=== PATIENT | female | born 1990 | race Caucasian/White ===

== ENCOUNTER → 2016-10-17 | Outpatient (CLI) | payer OTHER ==
--- NOTE | 2016-10-17 14:09 | MRI ---
HISTORY: Low back pain with radiculopathy. Study: MRI lumbar spine without contrast Comparison: None available. Technique: Multiplanar multi-sequence MRI of the lumbar spine was obtained. Sagittal T1, sagittal T 2, and stir weighted images, axial T1, and axial T2 images were obtained. Findings: Anatomic alignment without fracture or listhesis. Disc desiccation at L5-S1 with associated mild dis c height loss. The visualized bone marrow has normal signal characteristics. The conus medullaris te rminates at L1. The visualized spinal cord demonstrates normal signal characteristics. The visualize d soft tissues are unremarkable. L1 -- L2: No significant disc bulge, neural foraminal narrowing, or spinal canal stenosis. L2 -- L3: No significant disc bulge, neural foraminal narrowing, or spinal canal stenosis. L3 -- L4: Broad-based disc bulge without significant neural foraminal narrowing or spinal canal sten osis. L4 -- L5: Broad-based disc bulge without significant neural foraminal narrowing or spinal canal sten osis. L5 -- S1: Broad-based disc bulge that extends into the lateral recesses causing mild/moderate right and mild left neural foraminal narrowing. No significant spinal canal stenosis. IMPRESSION: Broad-based disc bulge at L5-S1 causing mild to moderate neural foraminal narrowing. No significant spinal canal stenosis. Reported By:
== END | disposition home or self-care (01) ==
LOC: RAD 13:03
PROVIDERS: ATTEND Nurse Practitioner Family
DX: M54.16 Radiculopathy, lumbar region (principal); M51.27 Other intervertebral disc displacement, lumbosacral region
CPT/HCPCS: 72148

== ENCOUNTER 2019-01-01 06:54 | Inpatient (IN) ==
[2019-01-01 07:29] VITALS: BMI 41.6
[2019-01-01] MEDS ORDERED: NUBAIN INJ 200 MG VIAL MULTIDOSE IVP PRN (07:36)
[2019-01-01] MEDS ORDERED: PITOCIN IVP ONE (07:36)
[2019-01-01] MEDS ORDERED: PITOCIN ONE (07:37)
[2019-01-01] MEDS ORDERED: D5 1/2 NS 1000 ML 1,000 ML IV ONE (07:37)
[2019-01-01] MEDS ORDERED: D5 1/2 NS 1L W PITOCIN 20 UNITS/L 20 UNITS/1,000 ML BAG IV ONE (07:37)
[2019-01-01] MEDS ORDERED: ANCEF VIAL 1 GRAM ONE (07:38)
[2019-01-01] MEDS ORDERED: NS 100 ML IV 100 ML IV ONE (07:38)
[2019-01-01] MEDS ORDERED: FENTANYL INJ 100 mcg ONE (07:53)
[2019-01-01] MEDS ORDERED: NAROPIN EPIDURAL 0.2% + FENTANYL 90MCG 0 ML EPI ONE (07:53)
[2019-01-01] MEDS ORDERED: LR 1000 ML IV 1,000 ML IV ONE (07:55)
[2019-01-01] MEDS ORDERED: ANCEF VIAL 1 GRAM IVP SCH (08:00)
[2019-01-01] MEDS ORDERED: AMPICILLIN VIAL 2 GRAM 2 G in NS 100 ML IV + SPIKE MINIBAG* 100 ML IV SCH (08:00)
[2019-01-01] MEDS ORDERED: D5 1/2 NS 1000 ML 1,000 ML IV SCH (08:00)
[2019-01-01] MEDS ORDERED: MARCAINE 0.25% WITH EPI IJ ONE (08:00)
[2019-01-01 08:02] LABS: BASOPHILS # (AUTO) 0.1 X10^3/uL (0.0-0.1); BASOPHILS % (AUTO) 0.4 % (0.2-1.0); EOSINOPHILS % (AUTO) 0.2 % (0.9-2.9); HEMATOCRIT 31.7 % (36.0-47.0); HEMOGLOBIN 11.3 g/dL (12.0-16.0); LYMPHOCYTES # (AUTO) 1.9 X10^3/uL (1.3-2.9); LYMPHOCYTES % (AUTO) 9.9 % (21.0-51.0); MEAN CORPUSCULAR HEMOGLOBIN 32.6 pg (27.0-34.0); MEAN CORPUSCULAR HGB CONC 35.5 g/dL (33.0-35.0); MEAN CORPUSCULAR VOLUME 91.8 fL (80.0-100.0); MEAN PLATELET VOLUME 8.3 fL (7.4-11.0); MONOCYTES # (AUTO) 0.7 x10^3/uL (0.3-0.8); MONOCYTES % (AUTO) 3.6 % (0.0-13.0); NEUTROPHILS # (AUTO) 16.7 x10^3/uL (2.2-4.8); NEUTROPHILS % (AUTO) 85.9 % (42.0-75.0); PLATELET COUNT 334 X10^3/uL (150.0-450.0); RED BLOOD COUNT 3.45 X10^6/uL (3.5-5.4); RED CELL DISTRIBUTION WIDTH 12.6 % (11.6-16.5); WHITE BLOOD COUNT 19.4 X10^3/uL (3.6-10.0)
[2019-01-01 08:07] LABS: BILIRUBIN,URINE NEGATIVE (NEGATIVE); BLOOD/HEMOGLOBIN,URINE 5+ (NEGATIVE); GLUCOSE, URINE NEGATIVE (NEGATIVE); KETONES,URINE NEGATIVE (NEGATIVE); LEUKOCYTE ESTERASE ,URINE 2+ (NEGATIVE); NITRITES,URINE NEGATIVE (NEGATIVE); PH,URINE 6.5 (5.0 - 8.0); PROTEIN,URINE 2+ (NEGATIVE); UROBILINOGEN,URINE NORMAL (NORMAL)
[2019-01-01 08:08] LABS: ALANINE AMINOTRANSFERASE 11 Units/L (12-78); ASPARTATE AMINO TRANSFERASE 14 Units/L (15-37); BLOOD UREA NITROGEN 4 mg/dL (7-18); CALCIUM 8.7 mg/dL (8.5-10.1); CARBON DIOXIDE 20.3 mmol/L (21-32); CHLORIDE 103 mmol/L (98-107); COR NA(FOR HYPERGLY) 137 mmol/L (136-145); SODIUM 137 mmol/L (136-145); eGFR NON BLACK RACES > 60 (>60)
[2019-01-01] MEDS ORDERED: XYLOCAINE-MPF 1% ONE (08:08)
[2019-01-01] MEDS ORDERED: XYLOCAINE 1 % (PLAIN) ONE (08:08)
[2019-01-01 08:09] LABS: APPEARANCE,URINE SLIGHTLY HAZY (CLEAR); COLOR,URINE YELLOW (YELLOW)
[2019-01-01 08:13] LABS: AMORPHOUS SEDIMENT,UR TRACE /HPF (NEGATIVE); BACTERIA,URINE TRACE /HPF (NEGATIVE); SQUAMOUS EPITHELIAL CELL,UR MANY /HPF (NEGATIVE)
[2019-01-01] MEDS ORDERED: D5LR 1L W PITOCIN 10 UNITS/L 10 UNITS/1,000 ML BAG IV ONE (08:29)
[2019-01-01] MEDS ORDERED: PHENERGAN INJ 25 MG IM PRN (09:34)
[2019-01-01] MEDS ORDERED: MOTRIN TAB 800 MG PO PRN (09:34)
--- NOTE | 2019-01-01 09:34 | DR.OB ---
OB Quick Note - Assessment/Plan Assessment/Plan: Delivery Note [employer] 01/01/19 at 9:14am Patient complete and pushing. Head delivered over intact perineum. Nuchal cord x 1 not able to be reduced. Nose and mouth bulb suctioned. Cord clamped x 2 and cut. handed to attendant. Cord sent for gases. Placenta delivered spontaneously / intact / 3 vessel cord. A clot noted on placenta (20%) concerning for abruption. No CVX tears. A small midline second degree tear noted and repaired with 0-vicryl in usual fashion. Viable male infant, VTX/OA, wt=4'6" and 6/8, stable to nursery. Mother stable to RR. YOC=[id number].
[2019-01-01] MEDS ORDERED: MILK OF MAGNESIA PO PRN (10:24)
[2019-01-01] MEDS ORDERED: DERMOPLAST SPRAY TOP PRN (10:24)
[2019-01-01] MEDS ORDERED: AMBIEN PO PRN (10:24)
[2019-01-01] MEDS ORDERED: ADACEL or BOOSTRIX TDaP VACCINE IM ONE (10:24)
[2019-01-01] MEDS: D5 1/2 NS 1000 ML 1,000 ML with PITOCIN 20 UNITS IV SCH ×4 (11:28→23:18)
[2019-01-01] MEDS ORDERED: AMPICILLIN VIAL 1 GRAM 1 G in NS 50 ML IV + SPIKE MINIBAG* 50 ML IV SCH (11:38)
[2019-01-01] MEDS: NORMODYNE TAB 100 MG PO SCH (22:14)
[2019-01-01] MEDS: ZANTAC PO SCH (22:14)
[2019-01-02] MEDS: D5 1/2 NS 1000 ML 1,000 ML with PITOCIN 20 UNITS IV SCH ×2 (02:08)
[2019-01-02 05:31] LABS: HEMOGLOBIN 10.1 g/dL (12.0-16.0)
[2019-01-02] MEDS ORDERED: PRENATAL PLUS PO SCH (09:00)
[2019-01-02] MEDS: ZANTAC PO SCH (09:31)
[2019-01-02] MEDS: NORMODYNE TAB 100 MG PO SCH (09:31)
[2019-01-02 12:10] VITALS: BP 163/91
== END 2019-01-02 09:50 | disposition home or self-care (01) | DRG 806 ==
LOC: ER 06:56 → LD 07:35 → MED/SURG 11:00
PROVIDERS: ADMIT Specialist; ATTEND Specialist
DX: Z37.0 Single live birth; O10.013 Pre-existing essential hypertension complicating pregnancy, third trimester; Z87.410 Personal history of cervical dysplasia; Z98.890 Other specified postprocedural states; O70.1 Second degree perineal laceration during delivery; Z3A.33 33 weeks gestation of pregnancy; O60.13X0 Preterm labor second trimester with preterm delivery third trimester, not applicable or unspecified
CPT/HCPCS: 36415; 59409; 80048; 81001; 84450; 84460; 85014; 85018; 85025; 86592; 86850; 86900; 86901; 96365; 99284; A4216; A4222; S0020; S0197; J0290; J0690; J2590; J3010; J7050; J7120; S5010

== ENCOUNTER 2023-06-25 06:22 | Observation (INO) ==
[2023-06-25] MEDS: NOZIN NASAL SANITIZER TP ONE (06:47)
[2023-06-25] MEDS: D5 1/2 NS 1,000 ML 1,000 ML IV SCH ×2 (06:55→10:01)
[2023-06-25] MEDS: DECADRON INJ ONE (07:25)
[2023-06-25] MEDS: BETADINE SOLN ONE (07:25)
[2023-06-25] MEDS: ANCEF VIAL 1 GRAM IVP ONE (07:25)
[2023-06-25] MEDS: ROBINUL ONE (07:25)
[2023-06-25] MEDS: DILAUDID INJ ONE (07:25)
[2023-06-25] MEDS: VERSED ONE (07:25)
[2023-06-25] MEDS: MARCAINE SPINAL ONE (07:25)
[2023-06-25] MEDS: ZEMURON 100 MG VIAL ONE (07:25)
[2023-06-25] MEDS: PRECEDEX INJ VIAL ONE (07:25)
[2023-06-25] MEDS: ZOFRAN INJ 4 MG VIAL ONE (07:25)
[2023-06-25] MEDS: DIPRIVAN VIAL 20 ML ONE (07:25)
[2023-06-25] MEDS: VASOSTRICT INJ 20 UNITS VIAL ONE (07:56)
[2023-06-25] MEDS: MAGNESIUM SULFATE 50% INJ VIAL ONE (07:57)
[2023-06-25] MEDS: BRIDION ONE (09:03)
[2023-06-25] MEDS: D5 1/2 NS 1,000 ML 1,000 ML IV ONE (09:15)
[2023-06-25] MEDS ORDERED: DILAUDID INJ IVP PRN (09:18)
[2023-06-25] MEDS ORDERED: BARHEMSYS INJ IVP PRN (09:18)
[2023-06-25] MEDS ORDERED: BENADRYL INJ 50 MG VIAL IVP PRN (09:18)
[2023-06-25] MEDS ORDERED: ZOFRAN INJ 4 MG VIAL IVP PRN (09:18)
[2023-06-25] MEDS ORDERED: REGLAN INJ 10 MG VIAL IVP PRN (09:18)
[2023-06-25] MEDS ORDERED: TORADOL 30 MG VIAL IVP PRN (09:46)
[2023-06-25] MEDS ORDERED: NARCAN INJ IVP PRN ×2 (09:46)
[2023-06-25] MEDS: ZOFRAN INJ 4 MG VIAL IV PRN (10:06)
[2023-06-25] MEDS: BENADRYL INJ 50 MG VIAL IVP PRN (10:20)
[2023-06-25 10:43] VITALS: BMI 34.7
[2023-06-25] MEDS ORDERED: NS IRRIGATION* 500 ML IR ONE (12:41)
[2023-06-25] MEDS: PHENERGAN INJ 25 MG IM PRN (16:37)
[2023-06-25] MEDS: PERCOCET TAB 5/325 MG PO PRN (16:38)
[2023-06-26 05:47] LABS: BASOPHILS % (AUTO) 0.3 % (0.2-1.0); EOSINOPHILS # (AUTO) 0.1 x10^3/uL (0.0-0.2); EOSINOPHILS % (AUTO) 1.9 % (0.9-2.9); HEMATOCRIT 24.7 % (36.0-47.0); LYMPHOCYTES # (AUTO) 1.7 X10^3/uL (1.3-2.9); LYMPHOCYTES % (AUTO) 28.5 % (21.0-51.0); MEAN CORPUSCULAR HEMOGLOBIN 31.1 pg (27.0-34.0); MEAN CORPUSCULAR HGB CONC 34.2 g/dL (33.0-35.0); MEAN CORPUSCULAR VOLUME 90.8 fL (80.0-100.0); MEAN PLATELET VOLUME 7.6 fL (7.4-11.0); MONOCYTES # (AUTO) 0.6 x10^3/uL (0.3-0.8); MONOCYTES % (AUTO) 10.1 % (0.0-13.0); NEUTROPHILS # (AUTO) 3.4 x10^3/uL (2.2-4.8); NEUTROPHILS % (AUTO) 59.2 % (42.0-75.0); PLATELET COUNT 239 X10^3/uL (150.0-450.0); RED BLOOD COUNT 2.72 X10^6/uL (3.5-5.4); RED CELL DISTRIBUTION WIDTH 13.1 % (11.6-16.5); WHITE BLOOD COUNT 5.8 X10^3/uL (3.6-10.0)
[2023-06-26 05:59] LABS: BLOOD UREA NITROGEN 6 mg/dL (7-18); CALCIUM 7.4 mg/dL (8.5-10.1); CARBON DIOXIDE 28.1 mmol/L (21-32); CHLORIDE 106 mmol/L (98-107); CREATININE 0.62 mg/dL (0.55-1.02); GLUCOSE 102 mg/dL (65-99); POTASSIUM 3.5 mmol/L (3.5-5.1); SODIUM 140 mmol/L (136-145); eGFR NON BLACK RACES > 60 (>60)
[2023-06-26 06:16] LABS: HEMOGLOBIN 8.4 g/dL (12.0-16.0)
[2023-06-26 08:57] VITALS: BP 106/54; PULSE 75; RESP 18; TEMP 98.1; O2SAT 100
== END 2023-06-26 10:20 | disposition home or self-care (01) ==
LOC: SURG1 06:22 → MED/SURG 06:22
PROVIDERS: ADMIT Specialist; ATTEND Specialist
DX: R10.2 Pelvic and perineal pain; R87.613 High grade squamous intraepithelial lesion on cytologic smear of cervix (HGSIL)